=== PATIENT | female | born 1975 | race Caucasian/White ===

== ENCOUNTER 2017-04-03 07:51 | Emergency (ER) | payer SELFPAY ==
[~2017-04-03] VITALS: Ht 154.9 cm; Wt 83.4 kg
[2017-04-03 09:31] LABS: ADD MIUA? YES; BILIRUBIN NEGATIVE; BLOOD NEGATIVE; COLOR YELLOW ((YELLOW)); GLUCOSE (STRIP) NEGATIVE; KETONES NEGATIVE; LEUKOCYTES NEGATIVE; NITRITE NEGATIVE; PROTEIN (STRIP) NEGATIVE; SPECIFIC GRAVITY 1.014 (1.000-1.030); UROBILINOGEN 0.2 MG/DL (0.2-1.0)
[2017-04-03 09:53] LABS: BACTERIA RARE /HPF; EPITHELIAL CELLS 1+ /HPF; HYALINE CASTS 0-5 /LPF; MUCUS TRACE /LPF; RED BLOOD CELLS 0-5 /HPF (0-5); WHITE BLOOD CELLS 0-5 /HPF (0-5)
[2017-04-03 10:45] VITALS: BP 118/72
[2017-04-03] MEDS ORDERED: TYLENOL WITH C1 EACH PO (10:45)
[2017-04-03] MEDS ORDERED: FLEXERIL10 MG PO (10:45)
== END 2017-04-03 10:45 | disposition home or self-care (01) ==
LOC: EME 07:51
PROVIDERS: Emergency Medicine
DX: M54.9 Dorsalgia, unspecified (principal); M79.1 Myalgia
CPT/HCPCS: 74176; 81003; 99281; 99284; J1885